=== PATIENT | male | born 1935 | race Caucasian/White ===

== ENCOUNTER → 2016-08-28 | Outpatient (CLI) | payer MEDICARE ==
[~2016-08-28] MED LIST: ACET500T68 PO; ALPR0.25 PO; AMIO200T PO; AMLO5TAB2 PO; ASCO500T2 PO; ASPI-253 PO; BUPIVACAINE MPF 0.25% 10 ML VIAL. ONE; CARV12.52 PO; DILT240C66 PO; DIPH25CA58 PO; FINA5TAB PO; FLUT9.9S NS; LIPITOR80 MG PO; MULT1TAB77 PO; PANT40TA5 PO; POLY17PO29 PO; POTA20TA12 PO; SPIR25TA3 PO; SUCR1TAB PO; TAMS0.4C97 PO; k-dur PO; methylPREDNISolone ACETATE 40 MG/ML VIAL. ONE
--- NOTE | 2016-08-29 00:12 | PAIN ---
DATE OF SERVICE: 08/28/2016 DIAGNOSES: 1. Lumbar radiculopathy with lumbar spinal stenosis and post-lumbar laminectomy syndrome. 2. Left greater trochanteric bursitis. 3. Myofascial pain. 4. Left knee pain with osteoarthritis. HISTORY OF PRESENT ILLNESS: The patient is an 81-year-old male who returns for followup status post trigger point injections also left greater trochanteric injections, transforaminal epidural injections, all with good results. The patient reports his pain is returning. He was last seen on 02/21/2016, had trigger point injections in the left gluteus with significantly decreased pain near 100%, now about 70%. The pain is returning now on the left posterior gluteus, posterior upper aspect of the lateral part of the left gluteus as it was previously back in January. The patient reports it wake him from sleep occasionally at to reposition. If he lays on his left side, it is more noticeable. Otherwise, he has been doing fairly well with increased activities of daily living, did very well for several months after the injection. Now it is returning, rates his pain as 7 on a scale of 10, describes severe, constant, aching, worse with walking, standing, change in positions or lying on his left side. The patient reports no new motor or sensory deficits, no further radiation to lower extremity or other complaints. PHYSICAL EXAMINATION: VITAL SIGNS: The patient's blood pressure is 140/76, pulse 84, respirations are 18, temperature 98.2 degrees Fahrenheit, height 6 feet 1 inch, and weight is 214 pounds. GENERAL: The patient is awake, alert, oriented, appropriate, with very pleasant demeanor. HEENT: Head shows normocephalic and atraumatic. Extraocular movements are intact, symmetrical. Oral cavity, mucous membranes are moist and pink. Dentition is intact. NECK: Shows anterior throat supple without palpable lymphadenopathy noted. Swallow reflex is symmetrical. CHEST: Shows normal on inspection. Breath sounds are clear to auscultation bilaterally. HEART: Shows S1 and S2 clear. ABDOMEN: Soft, nontender, and nondistended. No palpable organomegaly is noted. No rebound or guarding demonstrated. BACK: Shows spine grossly midline. Lumbar paraspinous muscle shows some moderate tenderness with palpation, but is symmetrical on inspection without atrophy or hypertrophy. Neck shows good rotation and motion of the lumbar spine, both laterally as well as extension and flexion. No tenderness over the sacrum or sacroiliac regions. No tenderness with flexion and extension of the spine. Lower extremities show deep tendon reflexes 1+ in the patellar and tendo calcaneus tendons. Motor exam is strong with 5/5 dorsiflexion, extension, quadriceps and hamstring flexion with palpation. The patient's posterior gluteus, left side where he demonstrates the pain by pointing with one finger is in the superior lateral aspect of the left gluteus in the musculature itself, very firm, very tender, very rope-like firm musculature, which is very tender to palpation without significant radiation, right side is nontender and supple. No radiation of pain is noted. The patient has negative Carlos's sign as well as negative Gaenslen's sign on the left as well. Options were discussed with the patient. The patient's old chart was reviewed as his current medication regimen and updated. Current review of systems updated today as well. We will proceed with trigger point injection to the left superior lateral gluteus. Risks were again discussed including, but not limited to bleeding, infection, possibility of intravascular injection sequelae, spread of local anesthetic and numbness, side effects of steroid medication and poor results regarding pain control. The patient understands and wishes to proceed. The patient will return to clinic in approximately 2 weeks for followup, was counseled on return appointment, activity level and side effects to be aware of. DIAGNOSIS: Myofascial pain. PROCEDURE: Trigger point injection to left superior lateral gluteus, under local anesthetic using a sterile prep and drape. MEDICATION INJECTED: A total of 40 mg of Depo-Medrol plus total of 5 mL of 0.25% bupivacaine after negative aspiration. CONDITION AT DISCHARGE: Stable. The patient tolerated procedure well, had no complications. LORY CARTAGENA MD DR: SARAH/luc JOB#: [id number] / [id number]
== END | disposition home or self-care (01) ==
LOC: PNCL 07:36
PROVIDERS: ATTEND Anesthesiology
DX: M79.1 Myalgia (principal); M48.06 Spinal stenosis, lumbar region; M54.16 Radiculopathy, lumbar region; M96.1 Postlaminectomy syndrome, not elsewhere classified; M17.12 Unilateral primary osteoarthritis, left knee; M70.62 Trochanteric bursitis, left hip; I10 Essential (primary) hypertension; K21.9 Gastro-esophageal reflux disease without esophagitis; F17.200 Nicotine dependence, unspecified, uncomplicated
CPT/HCPCS: 20552; J1030; J3490

== ENCOUNTER → 2017-09-25 | Outpatient (CLI) | payer MEDICARE ==
[~2017-09-25] MED LIST changes: -ACET500T68 PO; -ALPR0.25 PO; -AMIO200T PO; -AMLO5TAB2 PO; -ASCO500T2 PO; -ASPI-253 PO; +BUPIVACAINE MPF 0.25% 10 ML VIAL.; -BUPIVACAINE MPF 0.25% 10 ML VIAL. ONE; -CARV12.52 PO; -DILT240C66 PO; -DIPH25CA58 PO; -FINA5TAB PO; -FLUT9.9S NS; -LIPITOR80 MG PO; -MULT1TAB77 PO; -PANT40TA5 PO; -POLY17PO29 PO; -POTA20TA12 PO; -SPIR25TA3 PO; -SUCR1TAB PO; -TAMS0.4C97 PO; -k-dur PO; +methylPREDNISolone ACETATE 40 MG/ML VIAL.; -methylPREDNISolone ACETATE 40 MG/ML VIAL. ONE
== END ==
LOC: PNCL 07:41
DX: M79.1 Myalgia (principal); M54.16 Radiculopathy, lumbar region; M96.1 Postlaminectomy syndrome, not elsewhere classified; I10 Essential (primary) hypertension; M48.061 Spinal stenosis, lumbar region without neurogenic claudication; Z98.49 Cataract extraction status, unspecified eye; Z98.890 Other specified postprocedural states; K21.9 Gastro-esophageal reflux disease without esophagitis; M19.90 Unspecified osteoarthritis, unspecified site; Z85.828 Personal history of other malignant neoplasm of skin; Z80.8 Family history of malignant neoplasm of other organs or systems; Z79.82 Long term (current) use of aspirin; Z79.899 Other long term (current) drug therapy
CPT/HCPCS: 20552; J1030; J3490

== ENCOUNTER → 2017-10-23 | Outpatient (CLI) | payer MEDICARE | END | disposition home or self-care (01) | LOC: PNCL 07:50 | DX: M79.1 Myalgia (principal); M17.12 Unilateral primary osteoarthritis, left knee; M70.62 Trochanteric bursitis, left hip; M96.1 Postlaminectomy syndrome, not elsewhere classified; M48.061 Spinal stenosis, lumbar region without neurogenic claudication; M54.16 Radiculopathy, lumbar region; Z88.6 Allergy status to analgesic agent; Z88.8 Allergy status to other drugs, medicaments and biological substances; Z98.49 Cataract extraction status, unspecified eye; Z96.1 Presence of intraocular lens; I10 Essential (primary) hypertension; Z95.0 Presence of cardiac pacemaker; K21.9 Gastro-esophageal reflux disease without esophagitis; N40.0 Benign prostatic hyperplasia without lower urinary tract symptoms; Z85.828 Personal history of other malignant neoplasm of skin; Z79.899 Other long term (current) drug therapy; Z79.82 Long term (current) use of aspirin | CPT/HCPCS: 20552; J1030; J3490 ==

== ENCOUNTER → 2017-10-30 | Outpatient (CLI) | payer MEDICARE | END | disposition home or self-care (01) | LOC: PNCL 08:09 | DX: M79.1 Myalgia (principal); M54.16 Radiculopathy, lumbar region; M96.1 Postlaminectomy syndrome, not elsewhere classified; I10 Essential (primary) hypertension; K21.9 Gastro-esophageal reflux disease without esophagitis; N40.0 Benign prostatic hyperplasia without lower urinary tract symptoms; Z88.8 Allergy status to other drugs, medicaments and biological substances; Z88.6 Allergy status to analgesic agent; Z98.49 Cataract extraction status, unspecified eye; Z96.1 Presence of intraocular lens; Z98.890 Other specified postprocedural states; Z95.0 Presence of cardiac pacemaker; F17.200 Nicotine dependence, unspecified, uncomplicated; Z85.828 Personal history of other malignant neoplasm of skin; Z80.0 Family history of malignant neoplasm of digestive organs; Z79.82 Long term (current) use of aspirin; Z79.899 Other long term (current) drug therapy; M48.061 Spinal stenosis, lumbar region without neurogenic claudication; M17.12 Unilateral primary osteoarthritis, left knee | CPT/HCPCS: 20552; J1030; J3490 ==

== ENCOUNTER → 2018-02-13 | Outpatient (CLI) | payer MEDICARE ==
[~2018-02-13] MED LIST changes: +ACET500T68 PO; +ALPR0.25 PO; +AMIO200T PO; +AMLO5TAB7 PO; +ASCO500T2 PO; +ASPI-253 PO; -BUPIVACAINE MPF 0.25% 10 ML VIAL.; +BUPIVACAINE MPF 0.25% 10 ML VIAL. ONE; +CARV12.52 PO; +DEXT30SU19 PO; +DILT240C66 PO; +DIPH25CA58 PO; +FINA5TAB PO; +FLUT9.9S NS; +FOLI1TAB16 PO; +LIPITOR80 MG PO; +LORA10TA68 PO; +MULT1TAB77 PO; +OLANZAPINE PO; +PANT40TA5 PO; +POLY17PO29 PO; +POTA20TA12 PO; +SPIR25TA5 PO; +SUCR1TAB PO; +TAMS0.4C2 PO; +TAMS0.4C97 PO; +TRAZ-85 PO; +[UNRECOGNIZED DRUG - OTHER]; +[UNRECOGNIZED DRUG - OTHER]; +k-dur PO; -methylPREDNISolone ACETATE 40 MG/ML VIAL.; +methylPREDNISolone ACETATE 40 MG/ML VIAL. ONE
--- NOTE | 2018-02-13 10:37 | PAIN ---
DATE OF SERVICE: 02/13/2018 DIAGNOSES: 1. Myofascial pain. 2. Lumbar radiculopathy with lumbar spinal stenosis and post-laminectomy syndrome. 3. Left knee joint pain with osteoarthritis. HISTORY OF PRESENT ILLNESS: The patient is an 82-year-old male who returns for followup status post trigger point injections on 10/30/2017. The patient has recently been diagnosed with lung cancer, undergoing chemotherapy for this since 11/20. The patient reports still is doing well with this, has caused him to be quite tired, but his pain is returning, did very well with his last trigger point injection in the left gluteus and low back with about 75% improvement for about 3 months. The patient reports it is returning now with walking and standing. Pain in the left posterior gluteus, posterior hip and in the low back as well as the left lateral thigh. The patient reports it is a 9 on a scale of 10 at its worst, 8 on average, 7 at its least and is an 8 today. The patient reports it is aching, sometimes sharp, worse with walking, standing. Prior to that, he was walking very well, was doing household activities with greater ease and ability. The patient lives across the [address] from his daughters who take care of him. They report and are quite attentive, and he does have some good support at home. The patient reports no new motor or sensory deficits or other complaints. He complains of low back pain on the left side, hip pain on the left as well as into the left leg and left lateral knee. PHYSICAL EXAMINATION: VITAL SIGNS: Today, the patient's blood pressure is 97/55, pulse 81, respirations 16, temperature 98.3 degrees Fahrenheit, height 6 feet 2 inches, weighs 197 pounds. GENERAL: The patient is awake, alert, oriented, appropriate, very pleasant demeanor. HEENT: Head is normocephalic, atraumatic. Extraocular movements intact and symmetrical. Oral cavity: Mucous membranes moist and pink. Dentition is intact. NECK: Shows anterior throat supple without palpable lymphadenopathy noted. Swallow reflex is symmetrical. CHEST: Shows normal with inspection. Breath sounds are clear to auscultation bilaterally. HEART: Shows S1, S2 clear. No murmurs auscultated. ABDOMEN: Soft, nontender, nondistended. No palpable organomegaly is noted. No rebound or guarding demonstrated. BACK: Shows spine grossly in the midline. Lumbar paraspinous muscle shows symmetrical on inspection, with palpation shows some moderate tenderness in the low lumbar distribution of the left side only with very firm rope-like musculature consistent with trigger point areas of muscle on the left only. No difficulty with rotation both laterally as well as extension and flexion. Right side is not specifically tender as well. The patient's lower extremities show deep tendon reflexes 1+ in the patellar and tendo calcaneus tendons. Motor exam is strong with 5/5 dorsiflexion, extension, quadriceps and hamstring flexion. The patient's left gluteus shows some significant tenderness in the superior lateral aspect of the gluteus with very firm rope-like musculature in this region of the musculature, very firm, very tender, consistent with trigger point areas of musculature as well. This is also true into the left lateral quadriceps and near the knee with very firm rope-like musculature in this area. Also, very tender without specific radiation. Peripheral pulses are 1+ posterior tibia. No peripheral edema is noted in the bilateral lower extremities. Options were discussed with the patient. The patient's old chart was reviewed, his current medication regimen updated. Current review of symptoms updated today as well. We will proceed with trigger point injections of the left lumbar paraspinous musculature, left gluteus as well as left hand strength. Risks were discussed including but not limited to bleeding, infection, possibility of intravascular injection sequelae, spread of local anesthetic and numbness, side effects of steroid medication and poor results regarding pain control. The patient understands and wished to proceed. The patient will return to clinic in approximately 4 weeks for followup. She was counseled on return appointment, activity level and side effects to be aware of. DIAGNOSES: Myofascial pain, left gluteus, left hamstring muscle and left lumbar paraspinous musculature. PROCEDURE: Trigger point injections under sterile prep and drape using local anesthetic. MEDICATION INJECTED: A total of 40 mg Depo-Medrol, plus total of 6 mL of 0.25% bupivacaine after negative aspiration at each injection site. CONDITION AT DISCHARGE: Stable. The patient tolerated the procedure well, had no complications. LORY CARTAGENA MD DR: SARAH/luc JOB#: [id number] / [id number]
== END | disposition home or self-care (01) ==
LOC: PNCL 07:57
PROVIDERS: ATTEND Anesthesiology
DX: M79.18 Myalgia, other site (principal); M48.061 Spinal stenosis, lumbar region without neurogenic claudication; M54.16 Radiculopathy, lumbar region; M96.1 Postlaminectomy syndrome, not elsewhere classified; M17.12 Unilateral primary osteoarthritis, left knee
CPT/HCPCS: 20553; J1030; J3490